=== PATIENT | male | born 1960 | race Caucasian/White ===

== ENCOUNTER → 2016-07-12 | Outpatient (CLI) | payer BC ==
[~2016-07-12] MED LIST: ALTACE2.5 MG PO; ASPIRIN 32325 MG/TAB PO; ASPIRIN E.C.325 MG PO; ATIVAN 1MG T1 MG/TAB PO; CLOPIDOGREL PO; CYMBALTA 30MG30 MG PO; DISULFIRAM500 MG PO; FOLIC ACID 11 MG/TA1 PO; KLOR-CON M2020 MEQ PO; LIPITOR 80MG80 MG PO; LOFIBRA54 MG PO; LOPRESSOR 225 MG/TAB PO; NORCO 325 MG-51 TAB PO; NORFLEX 10100 MG/TAB PO; PLAVIX 75MG TAB75 MG PO; SIMVASTATIN40 MG PO; SOMA 350MG350 MG/TAB PO; THERAGRAN TAB1 UDTAB PO; THIAMINE 1100 MG/TAB PO; TOPROL XL 25MG25 MG PO; ULTRAM 50MG TAB50 MG PO; VALIUM 10MG10 MG/TAB PO; VASOTEC 2.2.5 MG/TAB PO; VICODIN 5/5001 UDTAB PO; ZOCOR 20MG20 MG PO; ZOCOR80 MG PO
== END ==
LOC: MHCPAIN 08:03
DX: G89.29 Other chronic pain (principal); M50.90 Cervical disc disorder, unspecified, unspecified cervical region; F17.210 Nicotine dependence, cigarettes, uncomplicated
CPT/HCPCS: G0463

== ENCOUNTER → 2016-10-05 | Outpatient (CLI) | payer BC | LOC: COL.VAS 16:26 | DX: M79.89 Other specified soft tissue disorders (principal) ==

== ENCOUNTER 2018-03-03 08:13 | Day surgery (SDC) | payer OTHER ==
[~2018-03-03] VITALS: Ht 180.3 cm; Wt 80.4 kg
[2018-03-03] MEDS ORDERED: VASOTEC 2.2.5 MG/TAB PO (08:29)
[2018-03-03] MEDS ORDERED: PLAVIX 75MG TAB75 MG PO (08:29)
[2018-03-03] MEDS ORDERED: TOPROL XL 25MG25 MG PO (08:30)
[2018-03-03] MEDS ORDERED: ULTRAM 50MG TAB50 MG PO (08:30)
[2018-03-03] MEDS ORDERED: ZOCOR 40MG40 MG PO (08:30)
[2018-03-03 08:31] VITALS: BP 116/72; PULSE 71; TEMP 98
[2018-03-03 10:05] VITALS: BP 97/66; PULSE 77
[2018-03-03 10:20] VITALS: BP 97/66; PULSE 78
[2018-03-03 10:35] VITALS: BP 94/60; PULSE 58
[2018-03-03 10:50] VITALS: BP 95/65; PULSE 60
[2018-03-03 11:18] VITALS: BP 97/69; PULSE 67
== END 2018-03-03 11:00 | disposition home or self-care (01) ==
LOC: SDCO 08:13
DX: Z12.11 Encounter for screening for malignant neoplasm of colon (principal); Z90.49 Acquired absence of other specified parts of digestive tract
CPT/HCPCS: J2250; J3010; J7030

== ENCOUNTER 2019-09-07 10:24 | Day surgery (SDC) | payer OTHER ==
[~2019-09-07] VITALS: Ht 180.3 cm; Wt 80.6 kg
[~2019-09-07 10:24] MED LIST changes: +ZOCOR 40MG40 MG PO
[2019-09-07 10:49] VITALS: BP 108/49; PULSE 68; TEMP 97.4
--- NOTE | 2019-09-07 10:59 | NUR ---
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
[2019-09-07 12:00] VITALS: BP 97/73; PULSE 70; TEMP 97.2
--- NOTE | 2019-09-07 12:00 | NUR ---
PATIENT TRANSPORTED TO [facility] PER CART ACCOMPANIED BY ENDO STAFF. PATIENT ALERT AND TALKING WITH STAFF. PATIENT AMBULATES FROM CART TO CHAIR WITH 1 ASSIST. STEADY GAIT. MONITORS APPLIED. VSS. PATIENT DENIES DISCOMFORT AND NAUSEA. VERBAL REPORT RECEIVED.
[2019-09-07 12:15] VITALS: BP 98/63; PULSE 65
--- NOTE | 2019-09-07 12:15 | NUR ---
1215-Report received from HI Gutierrez for lunch relief. Patient is resting comfortably in recliner and tolerated muffin without any nausea or vomiting. Vitals are stable. Denies any pain. Call high in reach and he reports being comfortable. No needs verbalized at this time.
[2019-09-07 12:30] VITALS: BP 96/52; PULSE 70; TEMP 97.6
--- NOTE | 2019-09-07 12:30 | NUR ---
1230-Dr. Moura is at bedside and speaking with patient regarding procedure findings and plan of care. Discussed pictures with him and copy provided to him. Vitals remain stable. He denies having any pain or nausea at present. He remains pale; however, this is likely his baseline appearance. No dizziness or light-headededness reported. 1235-Discussed discharge instructions with him and medication changes. He verbalized understanding and copy of instructions provided to him. IV site from right ac dc'd. Tip of catheter intact. Cotton ball and coban wrap applied. Patient is getting dressed and prepared for discharge home with his friend, Peter. 1240-Taken to lobby via wheelchair by HI Gutierrez and discharge home with his friend. Belongings and dc instructions with him.
[2019-09-07 12:52] VITALS: BP 97/73; PULSE 70; TEMP 97.2
== END 2019-09-07 12:40 | disposition home or self-care (01) ==
LOC: SDCO 10:24
DX: K25.3 Acute gastric ulcer without hemorrhage or perforation (principal); K21.0 Gastro-esophageal reflux disease with esophagitis; K44.9 Diaphragmatic hernia without obstruction or gangrene; K29.80 Duodenitis without bleeding; D50.0 Iron deficiency anemia secondary to blood loss (chronic); I25.2 Old myocardial infarction; I11.9 Hypertensive heart disease without heart failure; E78.00 Pure hypercholesterolemia, unspecified; I48.91 Unspecified atrial fibrillation; Z95.5 Presence of coronary angioplasty implant and graft; I25.10 Atherosclerotic heart disease of native coronary artery without angina pectoris; E78.5 Hyperlipidemia, unspecified; F17.210 Nicotine dependence, cigarettes, uncomplicated; Z79.82 Long term (current) use of aspirin; Z79.02 Long term (current) use of antithrombotics/antiplatelets; Z79.899 Other long term (current) drug therapy; G89.29 Other chronic pain
CPT/HCPCS: J2704; J7030

== ENCOUNTER 2019-11-21 09:34 | Day surgery (SDC) | payer OTHER ==
[~2019-11-21] VITALS: Ht 180.3 cm; Wt 78.5 kg
[2019-11-21 10:08] VITALS: BP 130/81; PULSE 68; TEMP 97.9
[2019-11-21] MEDS ORDERED: PLAVIX 75MG TAB75 MG PO (10:45)
[2019-11-21] MEDS ORDERED: FOLIC ACID 11 MG/TA1 PO (10:45)
[2019-11-21] MEDS ORDERED: IRON TABLETS325 MG PO (10:46)
[2019-11-21] MEDS ORDERED: ZANAFLEX CAPSULE2 MG PO (10:47)
[2019-11-21 12:05] VITALS: BP 124/70; PULSE 69
--- NOTE | 2019-11-21 12:05 | NUR ---
Patient returns to room 5 per cart and is awake and alert. Transfers from cart to recliner with one person assist. IV fluids infusing and patient denies difficulty swallowing or breathing. Call light in reach. Patient requests muffin and juice and given.
[2019-11-21 12:20] VITALS: BP 136/83; PULSE 63
--- NOTE | 2019-11-21 12:20 | NUR ---
Resting and tolerated muffin and juice. Denies nausea or difficulty swallowing.
--- NOTE | 2019-11-21 12:25 | NUR ---
Dr. Moura here to talk with the patient and all questions answered.
--- NOTE | 2019-11-21 12:30 | NUR ---
Dismissal instructions given and signed. Verbalizes understanding of these. IV discontinued and patient dresses self.
--- NOTE | 2019-11-21 12:41 | NUR ---
Patient dismissed to home driven by daughter and taken to the front door per wheelchair and assisted into vehicle by this RN with instructions in hand.
== END 2019-11-21 12:41 | disposition home or self-care (01) ==
LOC: SDCO 09:34
DX: K29.50 Unspecified chronic gastritis without bleeding (principal); K44.9 Diaphragmatic hernia without obstruction or gangrene; K31.89 Other diseases of stomach and duodenum; K29.80 Duodenitis without bleeding; Z87.11 Personal history of peptic ulcer disease; Z11.59 Encounter for screening for other viral diseases; Z90.49 Acquired absence of other specified parts of digestive tract
CPT/HCPCS: J7120

== ENCOUNTER → 2020-12-15 | Outpatient (CLI) | payer OTHER ==
[~2020-12-15] MED LIST changes: +IRON TABLETS325 MG PO; +LIORESAL 1010 MG/TAB PO; +PROTONIX 40MG T40 MG PO; +ZANAFLEX CAPSULE2 MG PO
--- NOTE | 2020-12-15 07:00 | NUR ---
Pt took plavix this am, procedure canceled.
== END ==
LOC: COL.RAD 06:22
DX: M47.812 Spondylosis without myelopathy or radiculopathy, cervical region (principal)

== ENCOUNTER → 2020-12-22 | Outpatient (CLI) | payer OTHER ==
[~2020-12-22] VITALS: Ht 180.3 cm; Wt 82.5 kg
[2020-12-22 07:03] VITALS: BP 164/85; PULSE 75; TEMP 98
[2020-12-22 08:00] VITALS: BP 166/93; PULSE 70
== END ==
LOC: COL.RAD 06:28
DX: M47.812 Spondylosis without myelopathy or radiculopathy, cervical region (principal)
CPT/HCPCS: J1100

== ENCOUNTER → 2022-08-26 | Outpatient (CLI) | payer OTHER ==
[~2022-08-26] VITALS: Ht 180.3 cm; Wt 86.8 kg
[2022-08-26 12:40] VITALS: BP 152/79; PULSE 65; TEMP 98.5
== END ==
LOC: COL.RAD 12:10
DX: M51.36 Other intervertebral disc degeneration, lumbar region (principal)
CPT/HCPCS: J3301